=== PATIENT | female | born 1990 | race Caucasian/White ===

== ENCOUNTER → 2019-09-10 11:33 | Outpatient (CLI) | payer OTHER, MEDICAID, SELFPAY ==
--- NOTE | 2019-09-10 | DI.US.S_ITS ---
PROCEDURE: US PELVIC COMPLETE INDICATIONS: PELVIC PAIN, CHECK IUD TECHNIQUE: Real-time scanning was performed of the pelvic organs, with image documentation. Additional endovaginal scanning was necessary due to incomplete visualization of the adnexal and endometrial structures by transabdominal scanning. COMPARISON: None. FINDINGS: Transabdominal scanning: Limited scanning through the kidneys shows no hydronephrosis. No pathologic free abdominal or pelvic fluid. Endovaginal scanning: Uterus: Uterus is normal in size at 7.7 x 4.3 x 2.5 cm. The endometrium measures 5 mm in combined thickness. There is an IUD in uterine cavity. Ovaries: Right ovary measures 3.6 x 3.6 x 2.3 cm. Left ovary measures 4.1 x 3.0 x 2.3 cm. There is a 2 cm simple appearing cyst in left ovary, probably a prominent ovary follicle. A 3.4 x 2.0 x 1.8 cm isoechoic mass is seen in the left ovary, demonstrating no internal vascularity. Echogenic foci adjacent to the mass could represent calcification. IMPRESSION: 1. The IUD is in appropriate position. 2. A 3.4 x 2.0 x 1.8 cm isoechoic mass is seen in the left ovary, demonstrating no internal vascularity. The sonographic appearance suggests endometrioma or a hemorrhagic cyst. Recommend followup ultrasound in 6 weeks. 3. A 2 cm simple cyst in the right ovary. Dictated by: Evette Goff M.D. on 09/10/2019 at 15:22 Approved by: Evette Goff M.D. on 09/10/2019 at 15:27
== END ==
PROVIDERS: Visit Provider Nurse Practitioner Family
DX: R10.2 Pelvic and perineal pain (principal); Z30.431 Encounter for routine checking of intrauterine contraceptive device; N83.9 Noninflammatory disorder of ovary, fallopian tube and broad ligament, unspecified; N83.291 Other ovarian cyst, right side
CPT/HCPCS: 76830; 76856

== ENCOUNTER → 2020-11-07 15:56 | Outpatient (CLI) | payer OTHER, MEDICAID, SELFPAY ==
--- NOTE | 2020-11-07 | DI.US.S_ITS ---
PROCEDURE: US PELVIC COMPLETE INDICATIONS: Unspecified ovarian cyst, unspecified side TECHNIQUE: Real-time scanning was performed of the pelvic organs, with image documentation. Additional endovaginal scanning was necessary due to incomplete visualization of the adnexal and endometrial structures by transabdominal scanning. COMPARISON: [facility], , US PELVIC COMPLETE, 09/10/2019, 11:45. FINDINGS: Transabdominal scanning: Limited scanning through the kidneys shows no hydronephrosis. No pathologic free abdominal or pelvic fluid. Endovaginal scanning: Uterus: Uterus is normal in size at 7.2 x 3.5 x 5.1 cm. The endometrium measures 4 mm in combined thickness. An intrauterine device is again noted and appropriately position within the endometrial cavity. Ovaries: Both ovaries are normal in sonographic appearance. Right ovary measures 3.8 x 1.9 x 2.6 cm. Left ovary measures 3.1 x 1.7 x 2.0 cm. Vascular flow noted bilaterally. No sonographic evidence for torsion. Previously described left ovarian hypoechoic mass which was thought to represent endometrioma versus possible hemorrhagic cyst is no longer visualized and presumably resolved. Findings are likely member service representative of a resolved hemorrhagic cyst. No new suspicious ovarian mass lesions identified. IMPRESSION: 1. Normal sonographic evaluation of the pelvis. 2. Interval resolution of previously described left ovarian hypoechoic lesion likely representing a resolved hemorrhagic cyst. Dictated by: Josh Sen M.D. on 11/08/2020 at 17:03 Approved by: Josh Sen M.D. on 11/08/2020 at 17:20
== END ==
PROVIDERS: Referring Provider Student in an Organized Health Care Education/Training Program; Visit Provider Student in an Organized Health Care Education/Training Program
DX: N83.209 Unspecified ovarian cyst, unspecified side (principal); Z97.5 Presence of (intrauterine) contraceptive device
CPT/HCPCS: 76856

== ENCOUNTER 2022-07-26 11:58 | Observation (INO) | payer OTHER, MEDICAID, SELFPAY ==
[2022-07-26] VITALS (25 sets, daily range): BP systolic 117–157; BP diastolic 62–85; PULSE 108–139; RESP 18–35; TEMP 37.1–37.4; O2SAT 89–97; BMI 31.2; BMI 33.7
--- NOTE | 2022-07-26 12:09 | DI.RAD.S_ITS ---
PROCEDURE: XR CHEST 2V INDICATIONS: shortness of breath TECHNIQUE: 2 views of the chest were acquired. COMPARISON: None. FINDINGS: Surgical changes and devices: None. Lungs and pleura: Lungs are clear. No pleural effusions or pneumothorax. Mediastinum: Mediastinal contours are normal. Heart size is normal. Bones and chest wall: No suspicious bony abnormalities. Soft tissues appear unremarkable. IMPRESSION: No acute cardiopulmonary pathology. Dictated by: Armando Shah M.D. on 07/26/2022 at 12:53 Approved by: Armando Shah M.D. on 07/26/2022 at 12:54
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
[2022-07-26] MEDS: IPRATROPIUM 0.5 MG/2.5 ML NEB INH (12:23)
[2022-07-26] MEDS: ALBUTEROL 2.5 MG/3 ML NEB (ADULT) INH ×8 (12:23→22:30)
[2022-07-26] MEDS: ALBUTEROL/IPRATROPIUM 3 ML AMPUL INH ×2 (13:04→13:05)
[2022-07-26] MEDS: predniSONE 20 MG TABLET PO (13:07)
--- NOTE | 2022-07-26 13:19 | RT ---
pt peak flow is 475 pt did 175 consistently
[2022-07-26 14:26] LABS: Add Manual Diff / Slide Review NO; Basophils Absolute Auto 100 /uL (0-100); Basophils Percent Auto 0.5 % (0-2); Eosinophils Absolute Auto 0 /uL (0-450); Eosinophils Percent Auto 0.2 % (2-4); Hematocrit 40.7 % (36-46); Hemoglobin 13.4 g/dL (12.0-16.0); Lymphocytes Absolute Auto 900 /uL (1100-4500); Lymphocytes Percent Auto 5.6 % (25-40); Mean Corpuscular HGB Conc 32.9 % (30-36); Mean Corpuscular Hemoglobin 27.3 PG (26-34); Mean Corpuscular Volume 82.9 fL (80-100); Monocytes Absolute Auto 500 /uL (0-900); Monocytes Percent Auto 3.1 % (3-14); Neutrophils Absolute Auto 14800 /uL (1500-7000); Neutrophils Percent Auto 90.6 % (50-75); Platelet Count 283 X10^3/uL (150-400); Red Blood Cell Count 4.91 X10^6/uL (4.0-5.2); Red Cell Distribution Width 14.6 % (11.6-14.8); White Blood Cell Count 16.3 X10^3/uL (4.5-11.0)
[2022-07-26 14:29] LABS: Albumin 4.2 g/dL (3.5-5.0); Albumin Globulin Ratio 1.2 (1.0-2.8); Alkaline Phosphatase 97 U/L (38-126); Aspartate Aminotransferase 26 IU/L (14-36); BUN Creatinine Ratio 8.7 (6-22); Bilirubin Total 0.4 mg/dL (0.2-1.3); Blood Urea Nitrogen 6 mg/dL (7-17); Calcium 8.9 mg/dL (8.4-10.2); Carbon Dioxide 24 mmol/L (22-32); Chloride 101 mmol/L (98-107); Estimated Glomerular Filt Rate > 60 mL/min (>60); Globulin 3.4 g/dL (1.7-4.1); Glucose 160 mg/dL (70-100); HEMOLYSIS < 15 (0-50); Lactate (Lactic Acid) 3.6 mmol/L (0.7-2.1); Potassium 3.7 mmol/L (3.4-5.1); Sodium 135 mmol/L (137-145); Total Protein 7.6 g/dL (6.3-8.2)
[2022-07-26] MEDS: MAGNESIUM SULFATE 2 GM/50 ML PIGGYBACK IV (14:30)
[2022-07-26 14:34] LABS: Alanine Aminotransferase 37 IU/L (<35)
[2022-07-26 16:16] LABS: Reflexed Lactate in 2 Hours Y
[2022-07-26 17:17] LABS: Lactate 2HR (Lactic Acid Rflx) 5.1 mmol/L (0.7-2.1)
[2022-07-26] MEDS: SODIUM CHLORIDE 0.9% 1,000 ML 1000 ML IV (17:25)
--- NOTE | 2022-07-26 18:24 | PC.NURSE ---
Ambulated pt around the unit x1. Pt's oxygen sats dropped to 89% room air. Pt asked to sit down and was SOB. Dr. Vuong notified.
[2022-07-26 18:51] LABS: COVID19 -Nasal RAPID Negative (Negative)
[2022-07-26] MEDS: SODIUM CHLORIDE 0.9% 1,000 ML 100 ML IV (20:26)
[2022-07-26] MEDS: predniSONE 20 MG TABLET 60 MG PO (22:24)
[2022-07-27] VITALS (9 sets, daily range): BP systolic 113–151; BP diastolic 63–89; PULSE 90–123; RESP 16–24; TEMP 36.6–37.7; O2SAT 90–97
[2022-07-27] MEDS: ALBUTEROL 2.5 MG/3 ML NEB (ADULT) INH ×4 (03:59→17:57)
--- NOTE | 2022-07-27 04:50 | PC.NURSE ---
Pt is AxOx4, independent and cooperative. VSS except lungs have expiratory wheezing in all areas and pt has scheduled breathing Tx. Pt has R AC IV running NS 100 ml/hr but it was bad and took it out around 2200. RN tried to insert new IV couple of times but it was not successful even using the vein machine. MD is notified and got order for PO Prednisone 60mg given once. Pt is doing well and independent. SpO2 is 90 on RA. Pt's repeat lactate was 5.1 around 16:46. There was no order for it so lab is called and will call MD in the morning to get Lactate order. No other changes.
[2022-07-27] MEDS: ACETAMINOPHEN 325 MG TABLET 650 MG PO ×3 (05:08→22:13)
[2022-07-27 06:49] LABS: Add Manual Diff / Slide Review NO; Basophils Absolute Auto 0 /uL (0-100); Basophils Percent Auto 0.1 % (0-2); Eosinophils Absolute Auto 0 /uL (0-450); Hematocrit 38.4 % (36-46); Hemoglobin 12.8 g/dL (12.0-16.0); Lymphocytes Absolute Auto 600 /uL (1100-4500); Mean Corpuscular HGB Conc 33.3 % (30-36); Mean Corpuscular Hemoglobin 27.5 PG (26-34); Mean Corpuscular Volume 82.8 fL (80-100); Monocytes Absolute Auto 100 /uL (0-900); Monocytes Percent Auto 0.8 % (3-14); Neutrophils Absolute Auto 13700 /uL (1500-7000); Neutrophils Percent Auto 95.1 % (50-75); Platelet Count 261 X10^3/uL (150-400); Red Blood Cell Count 4.64 X10^6/uL (4.0-5.2); Red Cell Distribution Width 14.8 % (11.6-14.8); White Blood Cell Count 14.4 X10^3/uL (4.5-11.0)
[2022-07-27 07:03] LABS: Lactate (Lactic Acid) 1.1 mmol/L (0.7-2.1)
[2022-07-27 07:05] LABS: BUN Creatinine Ratio 16.3 (6-22); Blood Urea Nitrogen 13 mg/dL (7-17); Calcium 8.9 mg/dL (8.4-10.2); Carbon Dioxide 25 mmol/L (22-32); Chloride 106 mmol/L (98-107); Estimated Glomerular Filt Rate > 60 mL/min (>60); Glucose 167 mg/dL (70-100); HEMOLYSIS < 15 (0-50); Potassium 4.3 mmol/L (3.4-5.1); Sodium 139 mmol/L (137-145)
[2022-07-27] MEDS: lamoTRIgine 100 MG TABLET 300 MG PO ×2 (09:03→21:16)
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
[2022-07-27] MEDS: cefTRIAXone 2,000 MG VIAL 1000 MG IM (12:24)
[2022-07-27] MEDS: ALBUTEROL/IPRATROPIUM 3 ML AMPUL INH (20:15)
[2022-07-28 00:16] VITALS: PULSE 103; RESP 16; O2SAT 96
[2022-07-28] MEDS: ALBUTEROL 2.5 MG/3 ML NEB (ADULT) INH ×4 (00:16→12:03)
[2022-07-28] MEDS: ALBUTEROL/IPRATROPIUM 3 ML AMPUL INH ×2 (00:16→02:38)
[2022-07-28 02:38] VITALS: PULSE 89; RESP 20; O2SAT 96
[2022-07-28 02:47] VITALS: BP 125/70; PULSE 97; RESP 20; TEMP 36.2; O2SAT 100
[2022-07-28] MEDS: ACETAMINOPHEN 325 MG TABLET 650 MG PO (05:36)
[2022-07-28 06:12] LABS: Add Manual Diff / Slide Review NO; Basophils Absolute Auto 100 /uL (0-100); Basophils Percent Auto 0.6 % (0-2); Eosinophils Absolute Auto 1000 /uL (0-450); Eosinophils Percent Auto 8.8 % (2-4); Hematocrit 35.1 % (36-46); Hemoglobin 11.8 g/dL (12.0-16.0); Lymphocytes Absolute Auto 2700 /uL (1100-4500); Lymphocytes Percent Auto 24.8 % (25-40); Mean Corpuscular HGB Conc 33.5 % (30-36); Mean Corpuscular Hemoglobin 27.8 PG (26-34); Mean Corpuscular Volume 83.1 fL (80-100); Monocytes Absolute Auto 800 /uL (0-900); Monocytes Percent Auto 7.7 % (3-14); Neutrophils Absolute Auto 6300 /uL (1500-7000); Neutrophils Percent Auto 58.1 % (50-75); Platelet Count 259 X10^3/uL (150-400); Red Blood Cell Count 4.23 X10^6/uL (4.0-5.2); White Blood Cell Count 10.8 X10^3/uL (4.5-11.0)
[2022-07-28 06:21] LABS: Alanine Aminotransferase 19 IU/L (<35); Albumin 3.5 g/dL (3.5-5.0); Albumin Globulin Ratio 1.2 (1.0-2.8); Alkaline Phosphatase 67 U/L (38-126); Aspartate Aminotransferase 22 IU/L (14-36); BUN Creatinine Ratio 20.6 (6-22); Blood Urea Nitrogen 14 mg/dL (7-17); Calcium 8.2 mg/dL (8.4-10.2); Carbon Dioxide 26 mmol/L (22-32); Chloride 105 mmol/L (98-107); Estimated Glomerular Filt Rate > 60 mL/min (>60); Glucose 110 mg/dL (70-100); HEMOLYSIS < 15 (0-50); Potassium 3.3 mmol/L (3.4-5.1); Sodium 139 mmol/L (137-145); Total Protein 6.5 g/dL (6.3-8.2)
[2022-07-28 06:24] LABS: Bilirubin Total < 0.1 mg/dL (0.2-1.3)
[2022-07-28 07:43] VITALS: PULSE 96; RESP 20; O2SAT 99
[2022-07-28 08:45] VITALS: BP 127/69; PULSE 107; RESP 20; TEMP 36.2; O2SAT 94
[2022-07-28] MEDS: POTASSIUM CHLORIDE 20 MEQ TAB 40 MEQ PO (08:56)
[2022-07-28] MEDS: ENOXAPARIN 40 MG/0.4 ML SYRINGE SUBCUT (08:56)
[2022-07-28] MEDS: lamoTRIgine 100 MG TABLET 300 MG PO (08:56)
--- NOTE | 2022-07-28 09:58 | PC.NURSE ---
Assess- Patient has been up walking in the halls. She occasionally has a cough with inspiratory wheezes and expiratory wheezes. No complaints at this time. Medications given orally. Resting comfortably and boyfriend in room.
--- NOTE | 2022-07-28 11:46 | PM.DS.1 ---
History of Present Illness History of Present Illness Date Patient Seen: 07/28/22 Chief complaint: Trouble breathing Narrative: [employer] presented to clinic with shortness of breath and wheezing - she was out of her inhalers so they were refilled she went home and got them however they did not help and she got a pulseox at pharmacy showing O2 sat 82% so she came back to ED. In ED found to be in status asthmaticus admitted for respiratory treatment. It appears they were totally unable to get a good PIV for her. she got prednisone adn breathing treatments and is feeling a bit better this morning - able to eat breakfast - but unable to walk more than 20 feet without falling over. Lives with beronica who works nights. She is adopted [place] without known family history, with seizure history takes Lamictal 2/2 putative childhood cranial fractures, last seizure 8 years ago. Discharge Providers Provider Date of admission: 07/26/22 18:32 Discharge Date: 07/28/22 Primary care physician: Mimi Morataya MD Consults: 07/26/22 18:55 Consult to Respiratory Therapy Evaluate & Treat Comment: Physician Instructions: Evaluate and treat 07/26/22 18:59 Consult to Respiratory Therapy Evaluate & Treat Comment: Physician Instructions: Evaluate and treat Discharge provider: Amaya Cardona MD Summary Hospital Course Discharge Diagnosis: status asthmaticus - acute asthma exacerbation acute respiratory failure suspected bronchitis, right sided seizure disorder ADD Hospital Course: The pt presented with acute asthma exacerbation. An IV was unable to be obtained. The pt received frequent Duoneb treatments. She improved significantly, and was weaned from oxygen. At the time of discharge, she had been off oxygen for nearly 24hrs. She will continue a prednisone taper at home. Status at Discharge Cognitive/behavioral status at discharge: oriented Functional status at discharge: independent ambulation Overall status at discharge: patient is progressing back to baseline Exam Vital Signs (past 8 hours): - 07/28/22 07:43 07/28/22 08:45 Temperature 97.2 F L Pulse Rate 96 H 107 H Respiratory Rate 20 20 Blood Pressure 127/69 Pulse Oximetry 99 94 Oxygen Delivery Method Room Air Oxygen Flow Rate 0 Fraction of Inspired Oxygen 21 SaO2/FiO2 Ratio 452 Oxygen Delivery Method Room Air Oxygen Flow Rate 0 Objective Labs Result Diagrams: 07/28/22 05:33 07/28/22 05:33 Labs: Laboratory Results - last 24 hr 07/28/22 07/28/22 05:33 05:33 WBC 10.8 RBC 4.23 Hgb 11.8 L Hct 35.1 L MCV 83.1 MCH 27.8 MCHC 33.5 RDW 15.0 H Plt Count 259 Neut % (Auto) 58.1 D Lymph % (Auto) 24.8 L D Crenshaw % (Auto) 7.7 Eos % (Auto) 8.8 H Baso % (Auto) 0.6 Neut # (Auto) 6300 Lymph # (Auto) 2700 Crenshaw # (Auto) 800 Eos # (Auto) 1000 H Baso # (Auto) 100 Sodium 139 Potassium 3.3 L Chloride 105 Carbon Dioxide 26 BUN 14 Creatinine 0.68 Estimated GFR > 60 BUN/Creatinine Ratio 20.6 Glucose 110 H Calcium 8.2 L Total Bilirubin < 0.1 L AST 22 ALT 19 Alkaline Phosphatase 67 Total Protein 6.5 Albumin 3.5 Globulin 3.0 Albumin/Globulin Ratio 1.2 PFSH Medical History Asthma Social History household members: significant other Smoking Status: Never smoker Discharge Plan Discharge Plan Patient Disposition: Home Discharge orders & Medications Prescriptions: New prednisone 20 mg tablet See Rx Instructions .ROUTE .COMPLEX Qty: 20 0RF Rx Instructions: Take 3 tabs daily x 4 days, 2 tabs daily x 3 days, 1 tab daily x 2 days Continued fluconazole 150 mg tablet 150 mg PO QWEEK PRN (Reason: Allergic Symptoms) Label Comments: take 1 tablet by mouth ONCE A WEEK NEEDED naltrexone 50 mg tablet 50 mg PO DAILY Label Comments: take 1 tablet by mouth once daily methylphenidate HCl 54 mg tablet extended release 24hr 54 mg PO DAILY Label Comments: take 1 tablet by mouth once daily fluticasone propionate [Flovent HFA] 220 mcg/actuation HFA aerosol inhaler 2 inh INHALATION BID Label Comments: 2 puff using inhaler twice a day albuterol sulfate [Ventolin HFA] 90 mcg/actuation HFA aerosol inhaler 1 puff INHALATION DAILY PRN (Reason: Dyspnea) Label Comments: 1-2 puff using inhaler once a day as needed Rx Instructions: 1-2 puffs q day prn methylphenidate HCl 18 mg tablet extended release 24hr 18 mg PO DAILY Label Comments: take 1 tablet by mouth once daily bupropion HCl 150 mg tablet extended release 24 hr 150 mg PO DAILY Label Comments: take 1 tablet by mouth once daily Changed lamotrigine [Lamictal] 100 mg tablet 300 mg PO BID Qty: 30 0RF Follow up/Referrals: Mimi Morataya MD [Primary Care Provider] - Edwin Panchal MD [Physician] - 1 Week Diet/Activity/Treatments Diet: Diet as Tolerated and Regular Visit Report/Discharge Packet Instructions: DI for Asthma -- Adult Visit Report Forms: Patient Portal/API, Stroke Signs & Symptoms Discharge Data Primary Care Provider: Mimi Morataya Quality VTE Deep Vein Thrombosis/Pulmonary Embolism Present on Admission: No
[2022-07-28 12:03] VITALS: PULSE 98; RESP 22; O2SAT 96
--- NOTE | 2022-07-28 13:37 | CM.DPNOTE ---
DCP Note: Patient with family in room. Patient anxious to discharge. Patient will dc home to previous living arrangement. Adriana Dickerson RN/DCP
== END 2022-07-28 13:31 | disposition home or self-care (01) ==
LOC: ED 18:29 → AC 07-27 08:26
PROVIDERS: Family Medicine; Admitting Provider Family Medicine; Emergency Provider Emergency Medicine; PCP Student in an Organized Health Care Education/Training Program; Referring Provider Emergency Medicine; Visit Provider Family Medicine
DX: R06.02 Shortness of breath (principal); J45.909 Unspecified asthma, uncomplicated; Z20.822 Contact with and (suspected) exposure to COVID-19
CPT/HCPCS: 36415; 71046; 80048; 80053; 83605; 85025; 87635; 94150; 94640; 94762; 96360; 96361; 96372; 99217; 99284; 99285; C9803; G0378; J0696; J1650; J3475; J7613

== ENCOUNTER → 2025-05-04 15:25 | Outpatient (CLI) | payer OTHER, SELFPAY ==
[2022-07-26 21:35] VITALS: BMI 33.7
[2025-05-04 16:02] LABS: Hematocrit 40.2 % (36-46); Hemoglobin 13.7 g/dL (12.0-16.0); Mean Corpuscular HGB Conc 34.0 % (30-36); Mean Corpuscular Hemoglobin 29.1 PG (26-34); Mean Corpuscular Volume 85.5 fL (80-100); Platelet Count 293 X10^3/uL (150-400)
[2025-05-04 16:18] LABS: Alanine Aminotransferase 34 IU/L (<35); Albumin 4.6 g/dL (3.5-5.0); Albumin Globulin Ratio 1.4 (1.0-2.8); Alkaline Phosphatase 79 U/L (38-126); Blood Urea Nitrogen 13 mg/dL (7-17); Calcium 9.6 mg/dL (8.4-10.2); Carbon Dioxide 28 mmol/L (22-32); Chloride 104 mmol/L (98-107); Estimated Glomerular Filt Rate > 60 mL/min (>60); Globulin 3.2 g/dL (1.7-4.1); Glucose 100 mg/dL (70-99); HEMOLYSIS < 15 (0-50); Potassium 4.3 mmol/L (3.4-5.1); Sodium 139 mmol/L (137-145); Total Protein 7.8 g/dL (6.3-8.2)
[2025-05-04 17:08] LABS: HIV 1 & 2 Ab/Ag 4th Gen Combo NEGATIVE (NEGATIVE); Hep C Virus Ab w/Reflex Quant NEGATIVE s/c (NEGATIVE)
== END ==
PROVIDERS: PCP Family Medicine; Referring Provider Family Medicine; Visit Provider Family Medicine
DX: J45.902 Unspecified asthma with status asthmaticus (principal); G40.909 Epilepsy, unspecified, not intractable, without status epilepticus; Z13.220 Encounter for screening for lipoid disorders; Z11.59 Encounter for screening for other viral diseases; Z11.4 Encounter for screening for human immunodeficiency virus [HIV]
CPT/HCPCS: 36415; 80053; 85027; 86803; 87389